=== PATIENT | male | born 1975 | race African-American/Black ===

== ENCOUNTER 2024-05-24 00:15 | Emergency (ER) | payer SELFPAY ==
[2024-05-24] MEDS ORDERED: LEVETIRACETAM 500 MG/5 ML VIAL IV ONE (00:54)
[2024-05-24] MEDS ORDERED: NA CHLORIDE 0.9% 100 ML ONE (00:55)
[2024-05-24] MEDS ORDERED: NA CHLORIDE 0.9% 1,000 ML ONE (01:21)
[2024-05-24 01:38] LABS: Barbiturates NEGATIVE (NEGATIVE); Benzodiazepines NEGATIVE (NEGATIVE); Cocaine NEGATIVE (NEGATIVE); METHAMPHETAM NEGATIVE (NEGATIVE); Methadone NEGATIVE (NEGATIVE); Opiates NEGATIVE (NEGATIVE); Phencyclidine NEGATIVE (NEGATIVE); THC Cannibis NEGATIVE (NEGATIVE)
[2024-05-24 01:57] LABS: Specific Gravity 1.027 (1.005-1.030); Sqamous Epithelial <5 /HPF (None Seen); Urine Bacteria None Seen /HPF (<20); Urine Bilirubin NEGATIVE (Negative); Urine Blood Trace (Negative); Urine Clarity Clear (Clear); Urine Color Light-Yellow (Yellow); Urine Culture Reflex Order NOT NEEDED; Urine Glucose NEGATIVE (Negative); Urine Ketones TRACE (Negative); Urine Microscopic Reflex YN ORDER UMIC; Urine Mucus Slight /HPF (None Seen); Urine Nitrite NEGATIVE (Negative); Urine Protein NEGATIVE (Negative); Urine RBC <5 /HPF (None Seen); Urine Urobilinogen Normal (Normal); Urine WBC <5 /HPF (<5)
[2024-05-24 02:03] LABS: Absolute Eosinophils 0.2 K/uL (0-0.5); Absolute Lymphocytes (CBC) 1.1 K/uL (0.7-4.9); Absolute Monocytes 0.6 K/uL (0.1-1.3); Absolute Neutrophil 4.2 K/uL (1.8-8.0); Basophils % 0.3 % (0-1.3); Eosinophils % 2.6 % (0-4.4); Hematocrit 38.9 % (39.6-49.0); Hemoglobin 12.8 g/dL (13.6-17.9); Lymphocytes % 18.8 % (15.3-44.8); MCH 29.9 pg (27.0-35.0); MCHC 32.8 g/dL (32.0-36.0); MCV 91.1 fL (80-100); MPV 8.9 fL (7.6-11.3); Monocytes % 9.3 % (3.3-12.3); Platelets 273 thou/uL (152-406); RBC Red Blood Cell Count 4.27 M/uL (4.33-5.43); Red Cell Distribution Width 14.2 % (12.1-15.2)
[2024-05-24 02:04] LABS: PT Prothrombin Time 10.6 SECONDS (9.4-12.5); PTT, Activated Partial Thromb 35.3 SECONDS (24.3-36.9); Protime INR 0.94
[2024-05-24 02:19] LABS: ALT/SGPT 23 U/L (16-61); AST/SGOT 28 U/L (15-37); Albumin 3.7 g/dL (3.4-5.0); Alkaline Phosphatase 72 U/L (45-117); Anion Gap 6.9 mEq/L (5.0-15.0); BUN Blood Urea Nitrogen 12 mg/dL (7-18); Bicarbonate 27 mEq/L (21-32); Bilirubin Direct < 0.2 mg/dL (0-0.2); Bilirubin Indirect, Calculated 0.1 mg/dL (0.2-0.8); Bilirubin Total 0.3 mg/dL (0.2-1.0); Globulin 3.8 g/dL (2.3-3.5); Glomerular Filtration Rate 86 ml/min (=/>90); Glucose Level 106 mg/dL (74-106); Potassium 3.9 mEq/L (3.5-5.1); Protein, Total 7.5 g/dL (6.4-8.2); Sodium Level 138 mEq/L (136-145)
--- NOTE | 2024-05-24 03:27 | RAD REPORT ---
EXAM: CT Head Without Intravenous Contrast CLINICAL HISTORY: Seizure. TECHNIQUE: Axial computed tomography images of the head/brain without intravenous contrast. Sagittal and coron al reformatted images were created and reviewed. This CT exam was performed using one or more of the following dose reduction techniques: automated exposure control, adjustment of the mA and/or kV according to patient size, and/or use of iterative reconstruction technique. COMPARISON: No relevant prior studies available. FINDINGS: Brain: Unremarkable. No hemorrhage. No significant white matter disease. No edema. Ventricles: Unremarkable. No ventriculomegaly. Bones/joints: Unremarkable. No acute fracture. Soft tissues: Unremarkable. Sinuses: Unremarkable as visualized. No acute sinusitis. Mastoid air cells: Unremarkable as visualized. No mastoid effusion. IMPRESSION: No acute intracranial or extra-axial abnormality. Electronically signed by: Giovanni Moraes MD 05/24/2024 03:21 AM [facility] Due to temporary technical issues with the PACS/[employer] reporting system, reports are being david d by the in-house radiologist without review as a courtesy to ensure prompt reporting the interpreting radiologist is fully responsible for the content of the report. Transcribed Date/Time: 05/24/2024 3:27 AM
--- NOTE | 2024-05-24 03:34 | EDPHYS ---
Physician Documentation [facility] Name: Mary Barrientos Age: 49 yrs Sex: Male : 1975 Arrival Date: 05/24/2024 Time: 00:15 Bed 12 Private MD: ED Physician Rafael Mattson HPI: 05/24 00:26 This 49 yrs old Other Race Male presents to ER via Unassigned with complaints of PT had sp4 2 seizures today approx 1 hr apart. 06:11 49-year-old male presents with complaint of breakthrough seizures. Patient states he sp4 has a history of epilepsy he takes Keppra 1000 mg p.o. twice daily ; patient states he has recently moved here from [place]. He is not established with local neurologist. He denied any other medical problems. He states he has been compliant with his Keppra. Historical: - Allergies: 00:32 No Known Allergies; jb4 - PMHx: 00:32 Seizures; jb4 - PSHx: 00:32 None; jb4 - Immunization history:: Adult Immunizations up to date. - Infectious Disease History:: Denies. - Social history:: Smoking status: Reported history of juuling and/or vaping. - Family history:: not pertinent. ROS: 06:11 Constitutional: Negative for fever, chills, and weight loss, positive for acute seizure sp4 x 2 06:11 All other systems are negative, Exam: 06:11 Constitutional: This is a well developed, well nourished patient who is awake, alert, sp4 and in no acute distress. Head/Face: Normocephalic, atraumatic. Eyes: Pupils equal round and reactive to light, extra-ocular motions intact. Lids and lashes normal. Conjunctiva and sclera are not injected. Cornea within normal limits. Periorbital areas with no swelling, redness, or edema. ENT: Nares patent. No nasal discharge, no septal abnormalities noted. Tympanic membranes are normal and external auditory canals are clear. Oropharynx with no redness, swelling, or masses, exudates, or evidence of obstruction, uvula midline. Mucous membranes moist. Neck: Trachea midline, no thyromegaly or masses palpated, and no cervical lymphadenopathy. Supple, full range of motion without nuchal rigidity, or vertebral point tenderness. Chest/axilla: Normal chest wall appearance and motion. Nontender with no deformity. No lesions are appreciated. Cardiovascular: Regular rate and rhythm with a normal S1 and S2. No gallops, murmurs, or rubs. Normal PMI, no JVD. No pulse deficits. Respiratory: Lungs have equal breath sounds bilaterally, clear to auscultation and percussion. No rales, rhonchi or wheezes noted. No increased work of breathing, no retractions or nasal flaring. Abdomen/GI: Soft, with normal bowel sounds. No distension or tympany. No guarding or rebound. No evidence of tenderness throughout. Back: No spinal tenderness. No costovertebral tenderness. Skin: Warm, dry with normal turgor. Normal color with no rashes, no lesions, and no evidence of cellulitis. MS/ Extremity: Pulses equal, no cyanosis. Neurovascular intact. Full, normal range of motion. Neuro: Awake and alert, GCS 15, oriented to person, place, time, and situation. Cranial nerves II-XII grossly intact. Motor strength 5/5 in all extremities. Sensory grossly intact. Psych: Awake, alert, with orientation to person, place and time. Behavior, mood, and affect are within normal limits Vital Signs: 00:31 BP 130 / 80; Pulse 93; Resp 16; Temp 98(TE); Pulse Ox 98% on R/A; Weight 106.59 kg (R); jb4 Height 6 ft. 2 in. (R); Pain 0/10; 03:51 BP 124 / 86; Pulse 88; Resp 17 S; Pulse Ox 99% on R/A; lg3 00:31 Body Mass Index 30.17 (106.59 kg, 187.96 cm) jb4 00:31 Pain Scale: Adult jb4 [place] Coma Score: 06:11 Eye Response: spontaneous(4). Motor Response: obeys commands(6). Verbal Response: sp4 oriented(5). Total: 15. MDM: 00:40 Medical Screening Exam initiated sp4 03:29 ED course: EXAM: CT Head Without Intravenous Contrast CLINICAL HISTORY: Seizure. sp4 TECHNIQUE: Axial computed tomography images of the head/brain without intravenous contrast. Sagittal and coronal reformatted images were created and reviewed. This CT exam was performed using one or more of the following dose reduction techniques: automated exposure control, adjustment of the mA and/or kV according to patient size, and/or use of iterative reconstruction technique. COMPARISON: No relevant prior studies available. FINDINGS: Brain: Unremarkable. No hemorrhage. No significant white matter disease. No edema. Ventricles: Unremarkable. No ventriculomegaly. Bones/joints: Unremarkable. No acute fracture. Soft tissues: Unremarkable. Sinuses: Unremarkable as visualized. No acute sinusitis. Mastoid air cells: Unremarkable as visualized. No mastoid effusion. IMPRESSION: No acute intracranial or extra-axial abnormality. Electronically signed by: Giovanni Moraes MD 05/24/2024 03:21. 06:11 Differential diagnosis: drug overdose, cardiac arrhythmia, seizure, TIA. Data reviewed: sp4 vital signs, nurses notes, lab test result(s), radiologic studies, CT scan. 06:14 Consideration of Admission/Observation Escalation of care including sp4 admission/observation considered. ED course: No additional seizures in ER. Patient is stable for discharge home with prescription for Keppra for the next 3 months with follow-up with Dr. Padilla with neurology.. 05/24 00:40 Order name: Acetaminophen; Complete Time: : 05/24 00:40 Order name: Basic Metabolic Panel; Complete Time: : [facility] 05/24 00:40 Order name: CBC with Diff; Complete Time: [facility] 05/24 00:40 Order name: ETOH Level; Complete Time: [facility] 05/24 00:40 Order name: Hepatic Function; Complete Time: : [facility] 05/24 00:40 Order name: PT-INR; Complete Time: : [facility] 05/24 00:40 Order name: Ptt, Activated; Complete Time: : [facility] 05/24 00:40 Order name: Salicylate; Complete Time: : [facility] 05/24 00:40 Order name: Urinalysis w/ reflexes; Complete Time: : [facility] 05/24 00:40 Order name: Urine Drug Screen; Complete Time: 03: [facility] 05/24 00:50 Order name: CT Head Brain wo Cont 4 05/24 00:40 Order name: EKG; Complete Time: 00:41 [facility] 05/24 00:40 Order name: IV Saline Lock; Complete Time: 01:19 [facility] 12/11 00:40 Order name: Labs collected and sent; Complete Time: 01:19 sp4 Administered Medications: 01:24 Drug: Keppra IV 1000 mg IV at bolus once Route: IV; Rate: bolus; Site: left antecubital;jb4 03:52 Follow up: Response: No adverse reaction; IV Status: Completed infusion; IV Intake: [id number] 01:24 Drug: NS 0.9% IV 1000 ml IV at 1000 ml once; to be given as a bolus over 60 minutes jb4 Route: IV; Rate: 1000 ml; Site: left antecubital; 03:52 Follow up: Response: No adverse reaction; IV Status: Completed infusion; IV Intake: lg3 1000ml Disposition Summary: 05/24/24 03:33 Discharge Ordered Notes: Location: Home sp4 Problem: new sp4 Symptoms: have improved sp4 Condition: Stable 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 Diagnosis - Generalized convulsive epilepsy, Breakthrough Seizure sp4 Followup: sp4 - With: Francisco Padilla MD - When: 7 - 10 days - Reason: Recheck today's complaints Discharge Instructions: - Discharge Summary Sheet sp4 - Epilepsy, [id number] sp4 Forms: - Work release form sp4 - Patient Portal Instructions sp4 Prescriptions: - levetiracetam 1,000 mg Oral tablet - take 1 tablet ORAL route every 12 hours; 180 tablet; Refills: 0, Product sp4 Selection Permitted Signatures: Dispatcher [employer] EDCamden Newton, RN RN jb4 Rafael Mattson MD MD sp4 Stella Davis RN lg3 Corrections: (The following items were deleted from the chart) 00:33 00:32 Social history: Smoking status: Patient denies any tobacco usage or history of. jb4 jb4 00:49 00:40 Suicide Screening ([place]) ordered. sp4 lg3 00:50 00:40 EKG - Nurse/Tech ordered. sp4 lg3 00:51 00:50 Head Brain Wo Cont+CT.RAD.BRZ ordered. EDMS EDMS
--- NOTE | 2024-05-24 03:34 | ER ---
Nurse's Notes [facility] Name: Mary Barrientos Age: 49 yrs Sex: Male : 1975 Arrival Date: 05/24/2024 Time: 00:15 Bed 12 Private MD: Diagnosis: Generalized convulsive epilepsy, Breakthrough Seizure Presentation: 05/24 00:31 Chief complaint: Patient states: I had a seizure around 930 pm and a second one around jb4 1130pm I took my keppra around 6pm. Coronavirus screen: At this time, the client does not indicate any symptoms associated with coronavirus-19. Ebola Screen: No symptoms or risks identified at this time. Initial Sepsis Screen: Does the patient meet any 2 criteria? HR > 90 bpm. Yes Does the patient have a suspected source of infection? No. Patient's initial sepsis screen is negative. Risk Assessment: Do you want to hurt yourself or someone else? Patient reports no desire to harm self or others. Onset of symptoms was May 23, 2024. Transition of care: patient was not received from another setting of care. 00:31 Method Of Arrival: Ambulatory jb4 00:31 Acuity: ANICETO 3 jb4 Triage Assessment: 00:32 General: Appears in no apparent distress. comfortable, Behavior is calm, cooperative, jb4 appropriate for age. Pain: Denies pain. Neuro: Level of Consciousness is awake, alert, obeys commands, Oriented to person, place, time, situation. Cardiovascular: Patient's skin is warm and dry. Respiratory: Airway is patent Respiratory effort is even, unlabored, Respiratory pattern is regular, symmetrical. Derm: Skin is intact, Skin is dry, Skin is normal, Skin temperature is warm. Musculoskeletal: Circulation, motion, and sensation intact. Range of motion: intact in all extremities. Historical: - Allergies: 00:32 No Known Allergies; jb4 - PMHx: 00:32 Seizures; jb4 - PSHx: 00:32 None; jb4 - Immunization history:: Adult Immunizations up to date. - Infectious Disease History:: Denies. - Social history:: Smoking status: Reported history of juuling and/or vaping. - Family history:: not pertinent. Screenin:42 [facility] ED Fall Risk Assessment (Adult) History of falling in the last 3 months, jb4 including since admission No falls in past 3 months (0 pts) Confusion or Disorientation No (0 pts) Intoxicated or Sedated No (0 pts) Impaired Gait No (0 pts) Mobility Assist Device Used No (0 pt) Altered Elimination No (0 pt) Score/Fall Risk Level 0 - 2 = Low Risk Oriented to surroundings, Maintained a safe environment. Abuse screen: Denies threats or abuse. Nutritional screening: No deficits noted. Tuberculosis screening: No symptoms or risk factors identified. Assessment: 00:42 Reassessment: see triage note. jb4 02:18 Reassessment: Patient appears in no apparent distress at this time. Patient and/or jb4 family updated on plan of care and expected duration. Pain level reassessed. Patient is alert, oriented x 3, equal unlabored respirations, skin warm/dry/pink. 03:51 Reassessment: Patient appears in no apparent distress at this time. Patient and/or lg3 family updated on plan of care and expected duration. Pain level reassessed. Patient is alert, oriented x 3, equal unlabored respirations, skin warm/dry/pink. Patient denies pain at this time. Vital Signs: 00:31 BP 130 / 80; Pulse 93; Resp 16; Temp 98(TE); Pulse Ox 98% on R/A; Weight 106.59 kg (R); jb4 Height 6 ft. 2 in. (R); Pain 0/10; 03:51 BP 124 / 86; Pulse 88; Resp 17 S; Pulse Ox 99% on R/A; lg3 00:31 Body Mass Index 30.17 (106.59 kg, 187.96 cm) jb4 00:31 Pain Scale: Adult jb4 [place] Coma Score: 06:11 Eye Response: spontaneous(4). Motor Response: obeys commands(6). Verbal Response: sp4 oriented(5). Total: 15. ED Course: 00:19 Patient arrived in ED. jj6 00:26 Rafael Mattson MD is Attending Physician. sp4 00:32 Triage completed. jb4 00:32 Arm band placed on right wrist. jb4 00:42 Patient has correct armband on for positive identification. Call light in reach. Side jb4 rails up X 1. Provided Education on: plan of care. 00:42 No provider procedures requiring assistance completed. jb4 01:22 Initial lab(s) drawn, by ED staff, sent to lab. Urine collected: clean catch specimen, lg3 clear. Inserted saline lock: 20 gauge in left antecubital area, using aseptic technique. Blood collected. Flushed with 10 mL NS. 02:08 CT Head Brain wo Cont In Process Unspecified. EDMS 03:32 Francisco Padilla MD is Referral Physician. sp4 03:52 IV discontinued, intact, bleeding controlled, No redness/swelling at site. Pressure lg3 dressing applied. Administered Medications: 01:24 Drug: Keppra IV 1000 mg IV at bolus once Route: IV; Rate: bolus; Site: left antecubital;jb4 03:52 Follow up: Response: No adverse reaction; IV Status: Completed infusion; IV Intake: [id number] 01:24 Drug: NS 0.9% IV 1000 ml IV at 1000 ml once; to be given as a bolus over 60 minutes jb4 Route: IV; Rate: 1000 ml; Site: left antecubital; 03:52 Follow up: Response: No adverse reaction; IV Status: Completed infusion; IV Intake: lg3 1000ml Medication: 00:42 VIS not applicable for this client. jb4 Intake: 03:52 IV: 1000ml; Total: 1000ml. lg3 03:52 IV: 50ml; Total: 1050ml. lg3 Outcome: 03:33 Discharge ordered by . sp4 03:52 Discharged to home ambulatory, with significant other, lg3 03:52 Condition: stable 03:52 Discharge instructions given to patient, Instructed on discharge instructions, follow up and referral plans. medication usage, Demonstrated understanding of instructions, follow-up care, medications, Prescriptions given X 1, 03:53 Patient left the ED. lg3 Signatures: Dispatcher [employer] EDTN Camden Cuellar RN RN jb4 Stella Davis RN RN lg3 Jacqueline Diana6 Rafael Mattson MD MD sp4 Corrections: (The following items were deleted from the chart) 00:33 00:32 Social history: Smoking status: Patient denies any tobacco usage or history of. jb4 jb4
[2024-05-24 04:33] VITALS: TEMP 98
[2024-05-24 04:39] VITALS: BP 124/86; O2SAT 99
== END 2024-05-24 03:53 | disposition home or self-care (01) ==
LOC: ER 00:15
DX: G40.309 Generalized idiopathic epilepsy and epileptic syndromes, not intractable, without status epilepticus (principal)
CPT/HCPCS: 36415; 70450; 80048; 80076; 80143; 80179; 80307; 81001; 82077; 85025; 85610; 85730; 96365; 96366; 99284; J1953; J7030

== ENCOUNTER 2024-09-04 16:47 | Emergency (ER) | payer SELFPAY ==
[2024-09-04 17:32] LABS: Absolute Eosinophils 0.2 K/uL (0-0.5); Absolute Lymphocytes (CBC) 2.5 K/uL (0.7-4.9); Absolute Monocytes 0.6 K/uL (0.1-1.3); Absolute Neutrophil 3.7 K/uL (1.8-8.0); Basophils % 0.6 % (0-1.3); Eosinophils % 2.6 % (0-4.4); Hemoglobin 12.4 g/dL (13.6-17.9); MCH 29.4 pg (27.0-35.0); MCHC 33.6 g/dL (32.0-36.0); MCV 87.5 fL (80-100); MPV 8.6 fL (7.6-11.3); Monocytes % 8.2 % (3.3-12.3); Neutrophils % 52.6 % (41.7-73.7); Nucleated Red Blood Cells % 0.1 % (0-0); Platelets 249 thou/uL (152-406); RBC Red Blood Cell Count 4.23 M/uL (4.33-5.43); Red Cell Distribution Width 14.2 % (12.1-15.2)
[2024-09-04] MEDS ORDERED: LEVETIRACETAM 500 MG/5 ML VIAL IV ONE (17:34)
[2024-09-04] MEDS ORDERED: NA CHLORIDE 0.9% 1,000 ML ONE (17:34)
[2024-09-04] MEDS ORDERED: NA CHLORIDE 0.9% 100 ML ONE (17:35)
[2024-09-04 17:42] LABS: Albumin 3.6 g/dL (3.4-5.0); Albumin/Globulin Ratio 0.9 (1.1-1.8); Anion Gap 7.6 mEq/L (5.0-15.0); Bilirubin Total 0.2 mg/dL (0.2-1.0); Globulin 4.2 g/dL (2.3-3.5); Potassium 3.6 mEq/L (3.5-5.1); Protein, Total 7.8 g/dL (6.4-8.2)
--- NOTE | 2024-09-04 18:08 | RAD REPORT ---
EXAM: CT brain without contrast HISTORY: SEIZURE COMPARISON: 05/24/2024 TECHNIQUE: Multiple contiguous axial images were obtained and a CT of the brain without contrast. Sag ittal and coronal reformats were performed. One or more of the following dose reduction techniques were used: Automated exposure control, adjust ment of the mA and/or kV according to patient size, and/or iterative reconstruction. FINDINGS: No evidence of hydrocephalus, intracranial hemorrhage, or extra-axial fluid collection. Small low-density lesion right basal ganglia is unchanged. No new brain lesion observed. No evidence of midline shift or areas of brain edema. The calvarium is intact. The visualized paranasal sinuses and mastoid air cells are essentially clear . IMPRESSION: No evidence of acute intracranial abnormality.
--- NOTE | 2024-09-04 18:27 | ER ---
Nurse's Notes [facility] Name: Mary Barrientos Age: 49 yrs Sex: Male : 1975 Arrival Date: 09/04/2024 Time: 16:47 Bed 17 Private MD: Diagnosis: Other seizures Presentation: 09/04 16:57 Chief complaint: Spouse and/or significant other states: he had an episode of not iw responding and only blinking his eyes that lasted about 3-4 minutes, he has a hx of seizures but normally he has shaking, he has not had his medicine for the last day and half, takes keppra 500 mg BID. Coronavirus screen: At this time, the client does not indicate any symptoms associated with coronavirus-19. Ebola Screen: No symptoms or risks identified at this time. Initial Sepsis Screen: Does the patient meet any 2 criteria? No. Patient's initial sepsis screen is negative. Does the patient have a suspected source of infection? No. Patient's initial sepsis screen is negative. Risk Assessment: Do you want to hurt yourself or someone else? Patient reports no desire to harm self or others. Onset of symptoms was September 04, 2024. 16:57 Method Of Arrival: Ambulatory iw 16:57 Acuity: ANICETO 3 iw Triage Assessment: 16:59 General: Appears in no apparent distress. Behavior is calm, cooperative. Neuro: Level iw of Consciousness is awake, alert. Historical: - Allergies: 16:59 No Known Allergies; iw - PMHx: 16:59 Seizures; iw - PSHx: 16:59 None; iw - Immunization history:: Adult Immunizations unknown. - Infectious Disease History:: Denies. - Social history:: Smoking status: unknown. Screenin:10 [facility] ED Fall Risk Assessment (Adult) History of falling in the last 3 months, kj2 including since admission No falls in past 3 months (0 pts) Confusion or Disorientation No (0 pts) Intoxicated or Sedated No (0 pts) Impaired Gait No (0 pts) Mobility Assist Device Used No (0 pt) Altered Elimination No (0 pt) Score/Fall Risk Level 0 - 2 = Low Risk Maintained a safe environment, Hourly rounding (assess needs \T\ fall precautionary measures) done. Abuse screen: Denies threats or abuse. Denies injuries from another. Nutritional screening: No deficits noted. Tuberculosis screening: No symptoms or risk factors identified. Assessment: 17:10 General: Appears in no apparent distress. Behavior is calm, cooperative. Pain: Denies kj2 pain. Neuro: Level of Consciousness is awake, alert, obeys commands, Oriented to person, place, time, situation. Cardiovascular: Patient's skin is warm and dry. Respiratory: Airway is patent Respiratory effort is even, unlabored. GI: No signs and/or symptoms were reported involving the gastrointestinal system. : No signs and/or symptoms were reported regarding the genitourinary system. 17:10 Reassessment: Patient appears in no apparent distress at this time. Patient and/or kj2 family updated on plan of care and expected duration. Pain level reassessed. Patient is alert, oriented x 3, equal unlabored respirations, skin warm/dry/pink. 18:34 Reassessment: Patient appears in no apparent distress at this time. Patient and/or kj2 family updated on plan of care and expected duration. Pain level reassessed. Patient is alert, oriented x 3, equal unlabored respirations, skin warm/dry/pink. Vital Signs: 16:57 BP 126 / 80; Pulse 70; Resp 16; Temp 98.6; Pulse Ox 99% on R/A; iw 18:35 BP 124 / 78; Pulse 74; Resp 20; Temp 98; Pulse Ox 100% on R/A; kj2 [place] Coma Score: 16:59 Eye Response: spontaneous(4). Motor Response: obeys commands(6). Verbal Response: iw oriented(5). Total: 15. ED Course: 16:50 Patient arrived in ED. al6 16:54 Gage Guevara FNP-C [facility]. dr5 16:54 Rai Quan MD is Attending Physician. dr5 16:59 Triage completed. iw 16:59 Arm band placed on. iw 17:10 Patient has correct armband on for positive identification. Provided Education on: call kj2 light. 17:15 Seizure precautions initiated. kj2 17:22 Inserted saline lock: 20 gauge in right antecubital area, using aseptic technique. kb4 17:22 Initial lab(s) drawn, by me, sent to lab. kb4 17:31 Nuvia Almanza, RN is Primary Nurse. kj2 17:53 No provider procedures requiring assistance completed. kj2 17:54 CT Head Brain wo Cont In Process Unspecified. EDMS 18:27 Ernie Nagel MD is Referral Physician. dr5 18:34 IV discontinued, intact, bleeding controlled, No redness/swelling at site. Pressure kj2 dressing applied. Administered Medications: 18:00 Drug: Keppra IV 1000 mg IV at per protocol once Route: IV; Rate: per protocol; Site: kj2 right antecubital; 18:32 Follow up: IV Status: Completed infusion; IV Intake: 100ml kj2 18:29 Drug: NS 0.9% IV 1000 ml IV at 1000 ml once; to be given as a bolus over 60 minutes kj2 Route: IV; Rate: 1000 ml; Site: right antecubital; 18:36 Follow up: IV Status: Order to discontinue infusion; IV Intake: 500ml kj2 Medication: 17:53 VIS not applicable for this client. kj2 Intake: 18:32 IV: 100ml; Total: 100ml. kj2 18:36 IV: 500ml; Total: 600ml. kj2 Outcome: 18:26 Discharge ordered by MD. dr5 18:30 Discharged to home ambulatory, kj2 18:30 Condition: stable 18:30 Discharge instructions given to patient, family, Instructed on discharge instructions, follow up and referral plans. Demonstrated understanding of instructions, follow-up care, 18:45 Patient left the ED. kj2 Signatures: Dispatcher [employer] Dilia Stark, RN JOSE iw Nuvia Almanza RN RN kj2 Gage Guevara, ENGINE MAINTENANCE MECHANIC-C ENGINE MAINTENANCE MECHANIC-[facility]5 Melissa Jiang6 Verónica Bryan kb4
--- NOTE | 2024-09-04 18:27 | EDPHYS ---
Physician Documentation [facility] Name: Mary Barrientos Age: 49 yrs Sex: Male : 1975 Arrival Date: 09/04/2024 Time: 16:47 Bed 17 Private MD: YESSICA Physician Rai Quan HPI: 09/04 17:32 This 49 yrs old Black Male presents to ER via Ambulatory with complaints of Seizure. dr5 17:32 The patient presents after having a single isolated seizure, that lasted 4 minute(s), dr5 the episode(s) was witnessed, by a spouse. Character of seizure(s): Motor activity: blank stare, Incontinence: none, Apnea: the patient did not experience apnea, Circulation: the patient did not experience evidence of pulse disturbance, Eye movements: are unknown. Patient is a 49-year-old male with history of epilepsy coming in with 1 seizure that occurred while he was in the car passenger seat with driving. states that she called his name and he was blinking and staring for approximately 3 to 4 minutes. states he has not taken his Keppra in about 2 days due to him running out of medications. Patient also reports that she has not been able to see Dr. Padilla due to how expensive it is with low income.. Historical: - Allergies: 16:59 No Known Allergies; iw - PMHx: 16:59 Seizures; iw - PSHx: 16:59 None; iw - Immunization history:: Adult Immunizations unknown. - Infectious Disease History:: Denies. - Social history:: Smoking status: unknown. ROS: 17:32 Constitutional: as per hpi dr5 Exam: 17:32 Constitutional: This is a well developed, well nourished patient who is awake, alert, dr5 and in no acute distress. Head/Face: Normocephalic, atraumatic. Eyes: Pupils equal round and reactive to light, extra-ocular motions intact. Lids and lashes normal. Conjunctiva and sclera are non-icteric and not injected. Cornea within normal limits. Periorbital areas with no swelling, redness, or edema. Neck: Trachea midline, no thyromegaly or masses palpated, and no cervical lymphadenopathy. Supple, full range of motion without nuchal rigidity, or vertebral point tenderness. No Meningismus. Chest/axilla: Normal chest wall appearance and motion. Nontender with no deformity. No lesions are appreciated. Cardiovascular: Regular rate and rhythm with a normal S1 and S2. Normal PMI, no JVD. No pulse deficits. Respiratory: Lungs have equal breath sounds bilaterally, clear to auscultation. No rales, rhonchi or wheezes noted. No increased work of breathing, no retractions or nasal flaring. Back: No spinal tenderness. No costovertebral tenderness. Full range of motion. Skin: Warm, dry with normal turgor. Normal color with no rashes, no lesions, and no evidence of cellulitis. MS/ Extremity: Pulses equal, no cyanosis. Neurovascular intact. Full, normal range of motion. Neuro: Awake and alert, GCS 15, oriented to person, place, time, and situation. Cranial nerves II-XII grossly intact. Motor strength 5/5 in all extremities. Sensory grossly intact. Cerebellar exam normal. Normal gait. Vital Signs: 16:57 BP 126 / 80; Pulse 70; Resp 16; Temp 98.6; Pulse Ox 99% on R/A; iw 18:35 BP 124 / 78; Pulse 74; Resp 20; Temp 98; Pulse Ox 100% on R/A; kj2 [place] Coma Score: 16:59 Eye Response: spontaneous(4). Motor Response: obeys commands(6). Verbal Response: iw oriented(5). Total: 15. MDM: 16:54 Medical Screening Exam initiated dr5 19:34 Differential diagnosis: cerebral vascular accident, seizure, TIA. Data reviewed: vital dr5 signs, nurses notes, lab test result(s), radiologic studies, CT scan. I considered the following discharge prescriptions or medication management in the emergency department Medications were administered in the Emergency Department. See MAR. Historians other than the Patient: Spouse/Significant Other: . Care significantly affected by the following chronic conditions: Epilepsy. Care significantly affected by the following Social Determinants of Health: Poor access to healthcare and/or lack of insurance, Poor access to transportation, Problems related to employment. Counseling: I had a detailed discussion with the patient and/or guardian regarding the historical points, exam findings, and any diagnostic results supporting the discharge/admit diagnosis, the presence of at least one elevated blood pressure reading (>120/80) during this emergency department visit, lab results, the need for outpatient follow up, for definitive care, a family practitioner, a neurologist, to return to the emergency department if symptoms worsen or persist or if there are any questions or concerns that arise at home. ED course: Patient did not have any seizures while in ER. Patient loaded with Keppra 1000 mg IV. I refilled patient's Keppra for the next [address] Nagel information to follow up with. Patient is following fine with no symptoms. Will follow-up this week with primary care doctor. All questions answered strict ER precautions given. Labs and CT results went over with patient.. 09/04 17:04 Order name: CBC with Diff; Complete Time: 17:36 dr5 09/04 17:04 Order name: CMP; Complete Time: 17:43 dr5 09/04 17:04 Order name: CT Head Brain wo Cont; Complete Time: 18:10 dr5 Administered Medications: 18:00 Drug: Keppra IV 1000 mg IV at per protocol once Route: IV; Rate: per protocol; Site: kj2 right antecubital; 18:32 Follow up: IV Status: Completed infusion; IV Intake: 100ml kj2 18:29 Drug: NS 0.9% IV 1000 ml IV at 1000 ml once; to be given as a bolus over 60 minutes kj2 Route: IV; Rate: 1000 ml; Site: right antecubital; 18:36 Follow up: IV Status: Order to discontinue infusion; IV Intake: 500ml kj2 Disposition Summary: 09/04/24 18:26 Discharge Ordered Notes: Location: Home dr5 Condition: Stable dr5 Diagnosis - Other seizures dr5 Followup: dr5 - With: Emergency Department - When: As needed - Reason: Worsening of condition Followup: dr5 - With: Private Physician - When: 1 - 2 days - Reason: Recheck today's complaints, Continuance of care, Re-evaluation by your physician Followup: dr5 - With: Ernie Nagel MD - When: 1 week - Reason: Recheck today's complaints, Continuance of care, Re-evaluation by your physician Discharge Instructions: - Discharge Summary Sheet dr5 - Epilepsy dr5 Forms: - Medication Reconciliation Form dr5 - Patient Portal Instructions dr5 - Leadership Thank You Letter dr5 Prescriptions: - levetiracetam 500 mg Oral tablet - take 1 tablet ORAL route every 12 hours for 12 wks; 180 tablet; Refills: 0, dr5 Product Selection Permitted Addendum: 09/06/2024 15:34 Co-signature as Attending Physician, Rai Quan MD I agree with the assessment and c kong plan of care. Signatures: Dispatcher [employer] EDRai Lindquist MD MD cha Williams, Irene, RN RN iw Nuvia Almanza, RN RN kj2 Gage Guevara, OPTICAL DISPENSER-C OPTICAL DISPENSER-Cdr5 Corrections: (The following items were deleted from the chart) 09/04 17:05 17:05 CBC+H.LAB.BRZ ordered. EDMS EDMS 17:05 17:05 COMPREHENSIVE METABOLIC PANEL+C.LAB.BRZ ordered. EDMS EDMS 17:05 17:05 Head Brain Wo Cont+CT.RAD.BRZ ordered. EDMS EDMS 19:36 19:34 ED course: Patient did not have any seizures while in ER. Patient loaded with dr5 Keppra 1000 mg IV. I refilled patient's Keppra for the next 3 months. Gave patient and Dr. Nagel. dr5
[2024-09-04 19:04] VITALS: BP 124/78; TEMP 98; O2SAT 100
== END 2024-09-04 18:45 | disposition home or self-care (01) ==
LOC: ER 16:47
DX: G40.89 Other seizures (principal)
CPT/HCPCS: 36415; 70450; 80053; 85025; 96365; 99284; J1953; J7030